=== PATIENT | male | born 1965 ===

== ENCOUNTER 2018-10-17 00:18 | Emergency (ER) | payer OTHER ==
--- NOTE | 2018-10-17 00:44 | EDPHY ---
H & P Time Seen by Provider: 10/17/18 00:21 HPI/ROS: CC: Right-sided rib pain status post fall HPI: This 53-year-old male with past medical history of hypertension, gout, diabetes and prior stroke presents to the emergency room today complaining of sharp, right-sided rib pain after he fell to the ground while wrestling with his son. He states he glanced off a chair but did not hit his ribs on the chair. He fell onto his back and had immediate pain on his right ribs just under the nipple. It radiates through to his back. When he takes a deep breath he rates the pain at 6/10. It does not hurt when he does not take a deep breath. His significant other gave him a Flexeril without relief. He has not had a recent illness. He had no trauma to the side of the chest previously. He has had no long trips or travel and no leg pain or swelling. REVIEW OF SYSTEMS: Constitutional: No fever, no chills. Eyes: No discharge. ENT: No sore throat. Respiratory: See HPI. Cardiac: No chest pressure, no palpitations. Gastrointestinal: No abdominal pain, no vomiting. Genitourinary: No hematuria. Musculoskeletal: No back pain. Skin: c/w psoriasis Neurological: No headache. Past Medical/Surgical History: PMH: Hypertension, diabetes, psoriasis, gout, stroke with minimal residual verbal deficit PSH: Skull fracture, right knee surgery, hernia repair FH: Mother had hypertension; does not think his father had health issues No known drug allergies Medications include Zestril, clonidine, amlodipine, metformin, allopurinol, Tradjenta Social History: No tobacco products; drinks ETOH (had 5 beers this evening); usually uses edibles but none this evening Smoking Status: Unknown if ever smoked Physical Exam: General Appearance: Alert, moderate distress. Eyes: Pupils equal and round no pallor or injection. ENT, Mouth: Mucous membranes are moist. Respiratory: There are no retractions, lungs are clear to auscultation. Chest Wall: pain with palpation right ribs just under the nipple line; no ecchymosis Cardiovascular: Regular rate and rhythm. Gastrointestinal: Abdomen is soft and nontender, no masses, bowel sounds normal. Neurological: Awake and alert, sensory and motor exams grossly normal. Skin: Warm and dry, patches of psoriasis Musculoskeletal: Neck is supple nontender. No midline back pain Extremities are symmetrical, full range of motion. Psychiatric: Patient is oriented X 3, there is no agitation. DIFFERENTIAL DIAGNOSIS: After history and physical exam differential diagnosis was considered for but not limited to and in no particular order: chest wall contusion, rib contusion, rib fracture, pneumothorax Constitutional: Initial Vital Signs Temperature (C) 96.6 F L 10/17/18 00:24 Heart Rate 93 10/17/18 00:24 Respiratory Rate 18 10/17/18 00:24 Blood Pressure 92/61 L 10/17/18 00:24 O2 Sat (%) 95 10/17/18 00:24 O2 Delivery Mode Room Air Allergies/Adverse Reactions: No Known Allergies Allergy (Verified 07/12/15 19:46) Home Medications: Medication Instructions Recorded Clonidine HCl 07/12/15 Medical Decision Making - Diagnostics Imaging Results: Chest/right ribs: No rib fracture or pneumothorax Imaging: I viewed and interpreted images myself ED Course/Re-evaluation: Patient was seen and examined. Vital signs reviewed. His blood pressure was running on the slightly low side and he was counseled to monitor his blood pressure discuss this with his primary care provider. He may need a blood pressure medication adjustment. His O2 sats were 95% on room air. His x-rays were negative for pneumothorax or rib fracture. He was given a take-home pack of [place] for pain unrelieved by ibuprofen. He was given an incentive spirometer. He was also advised to return to the emergency room or get a recheck with his primary care provider should he develop increased shortness of breath or fever. - Data Points Medications Given: Discontinued Medications Hydrocodone Bitart/Acetaminophen ([place] 5/325mg Prepack#6) 1 btl TAKEHOME EDNOW ONE Stop: 10/17/18 00:46 Last Admin: 10/17/18 00:51 Dose: 1 btl Hydrocodone Bitart/Acetaminophen ([place] 5/325) 2 tab PO EDNOW ONE Stop: 10/17/18 00:46 Last Admin: 10/17/18 00:51 Dose: 2 tab Departure - Departure Disposition: Home, Routine, Self-Care Clinical Impression: Contusion of rib on right side Condition: Good Instructions: Hydrocodone/Acetaminophen (By mouth), Rib Contusion (ED) Additional Instructions: Take 10 deep breaths every hour while awake. Motrin for pain. [place] for severe pain only. Follow up with her primary care provider or return to the emergency room if you have increased shortness of breath or fever or any other concerns. Referrals: Patient,NotPresent [Primary Care Provider] - As per Instructions
[2018-10-17] MEDS ORDERED: HYDROCOD/APAP 5/325 PREPACK#6 BTL TAKEHOME ONE (00:45)
[2018-10-17] MEDS ORDERED: HYDROCODONE/APAP 5/325 TAB PO ONE (00:45)
[2018-10-17 00:55] VITALS: BP 109/65
== END 2018-10-17 01:37 | disposition home or self-care (01) ==
LOC: CED 00:18
DX: S22.31XA Fracture of one rib, right side, initial encounter for closed fracture (principal); I10 Essential (primary) hypertension; E11.9 Type 2 diabetes mellitus without complications; W50.0XXA Accidental hit or strike by another person, initial encounter; Y93.83 Activity, rough housing and horseplay; Z79.4 Long term (current) use of insulin
CPT/HCPCS: 71111-PO; 99283-ER